=== PATIENT | female | born 1960 | race Caucasian/White ===

== ENCOUNTER 2016-09-06 09:53 | Emergency (ER) | payer BC ==
[~2016-09-06] VITALS: Ht 167.6 cm; Wt 52.3 kg
[~2016-09-06 09:53] MED LIST: ESTRADIOL; Estrace PO; HABITROL,NICODE14 MG TD; IMITREX; IMITREX25 MG PO; LIPITOR; PREVACID PO; ROBITUSSIN AC,T10 ML PO; TAMIFLU75 MG PO; ZITHROMAX500 MG PO
[2016-09-06 11:16] LABS: HEMATOCRIT 43.6 % (36.0-46.0); MCH 30.2 PG (29.0-34.0); MCHC 31.9 G/DL (30.0-36.0); MCV 94.8 FL (83-99); MEAN PLAT.VOLUME 10.4 uM^3 (9.5-12.4); PLATELET COUNT 211 K/uL (156-360); RBC DIS.WIDTH-CV 13.2 % (11.8-14.6); RBC DIS.WIDTH-SD 45.3 % (39-53); WHITE BLOOD COUNT 11.9 K/uL (4.1-10.2)
[2016-09-06 11:25] LABS: CHLORIDE 105 mEq/L (99-109); POTASSIUM 4.9 mEq/L (3.7-5.4); SODIUM 145 mEq/L (136-147)
[2016-09-06 11:27] LABS: GLUCOSE 89 mg/dL (70-99)
[2016-09-06 11:29] LABS: ANION GAP 9 MEQ/L (2-14); TOTAL BILIRUBIN 0.4 mg/dL (0.0-1.0)
[2016-09-06 11:31] LABS: ALKALINE PHOSPHATASE 53 IU/L (3-129); GFR ESTIMATE (CALCULATED) > 59 mL/min/
[2016-09-06 11:32] LABS: TROP-I INTERPRETATION NEGATIVE; TROPONIN-I < 0.01 ng/mL (0.0-0.30); UREA NITROGEN (BUN) 23 mg/dL (9-23)
[2016-09-06 11:33] LABS: DIRECT BILIRUBIN 0.2 mg/dL (0.0-0.3)
[2016-09-06 13:18] LABS: ADD MIUA? NO; BILIRUBIN NEGATIVE; BLOOD NEGATIVE; COLOR COLORLESS ((YELLOW)); GLUCOSE (STRIP) NEGATIVE; KETONES NEGATIVE; LEUKOCYTES NEGATIVE; NITRITE NEGATIVE; PROTEIN (STRIP) NEGATIVE; SPECIFIC GRAVITY 1.008 (1.000-1.030); UCUL ADDED? NO; UROBILINOGEN 0.2 MG/DL (0.2-1.0)
[2016-09-06 13:33] LABS: TROP-I INTERPRETATION NEGATIVE; TROPONIN-I < 0.01 ng/mL (0.0-0.30)
[2016-09-06 15:03] VITALS: BP 110/67
[2016-09-06 15:30] LABS: SAMPLE HEMOLYSIS CHECK 0; SAMPLE ICTERIC CHECK 0; SAMPLE LIPEMIA CHECK 0
== END 2016-09-06 15:04 | disposition home or self-care (01) ==
LOC: EME 09:53
PROVIDERS: Emergency Medicine
DX: R07.9 Chest pain, unspecified (principal); R10.9 Unspecified abdominal pain; J45.909 Unspecified asthma, uncomplicated; K21.9 Gastro-esophageal reflux disease without esophagitis; F17.200 Nicotine dependence, unspecified, uncomplicated
CPT/HCPCS: 71020; 71260; 74177; 80048; 80076; 81003; 84443; 84484; 85027; 93005; 99281; 99285; J7030

== ENCOUNTER → 2016-11-01 | Outpatient (CLI) | payer BC | END | disposition home or self-care (01) | LOC: EKG 10-28 09:00 | DX: R06.00 Dyspnea, unspecified (principal); I10 Essential (primary) hypertension; R94.31 Abnormal electrocardiogram [ECG] [EKG] | CPT/HCPCS: 93306 ==

== ENCOUNTER 2017-04-15 16:20 | Emergency (ER) | payer BC ==
[~2017-04-15] VITALS: Ht 167.6 cm; Wt 44.0 kg
[2017-04-15 17:28] LABS: HEMATOCRIT 45.5 % (36.0-46.0); HEMOGLOBIN 15.4 G/DL (11.9-15.5); MCH 30.6 PG (29.0-34.0); MCHC 33.8 G/DL (30.0-36.0); MCV 90.3 FL (83-99); PLATELET COUNT 212 K/uL (156-360); RBC DIS.WIDTH-SD 40.1 % (39-53); RED BLOOD COUNT 5.04 M/uL (3.80-5.20); WHITE BLOOD COUNT 5.9 K/uL (4.1-10.2)
[2017-04-15 17:39] LABS: CHLORIDE 100 mEq/L (99-109); POTASSIUM 3.3 mEq/L (3.7-5.4); SODIUM 137 mEq/L (136-147)
[2017-04-15 17:41] LABS: GLUCOSE 113 mg/dL (70-99)
[2017-04-15 17:45] LABS: GFR ESTIMATE (CALCULATED) > 59 mL/min/
[2017-04-15 17:46] LABS: UREA NITROGEN (BUN) 7 mg/dL (9-23)
[2017-04-15] MEDS ORDERED: PREDNISONE20 MG PO (20:11)
[2017-04-15] MEDS ORDERED: CHERATUSSIN AC473 ML PO (20:11)
[2017-04-15] MEDS ORDERED: ZOFRAN ODT4 MG PO (20:11)
[2017-04-15 20:41] VITALS: BP 137/75
== END 2017-04-15 20:42 | disposition home or self-care (01) ==
LOC: EME 16:20
PROVIDERS: Nurse Practitioner Family
DX: J10.1 Influenza due to other identified influenza virus with other respiratory manifestations (principal); J44.9 Chronic obstructive pulmonary disease, unspecified; R42 Dizziness and giddiness; F17.200 Nicotine dependence, unspecified, uncomplicated; K21.9 Gastro-esophageal reflux disease without esophagitis
CPT/HCPCS: 71046; 80048; 85027; 85379; 87502; 93005; 94640; 99281; 99284; J1885; J7030; J7512